=== PATIENT | female | born 1935 | race Two or more races ===

== ENCOUNTER → 2025-03-08 | Outpatient (BNVA) | payer MEDICARE, MEDICAID, SELFPAY | END | disposition home or self-care (01) | PROVIDERS: PCP Family Medicine; Referring Provider Family Medicine; Visit Provider Urology | DX: C64.2 Malignant neoplasm of left kidney, except renal pelvis (principal); N26.1 Atrophy of kidney (terminal); N28.1 Cyst of kidney, acquired; E11.9 Type 2 diabetes mellitus without complications; I10 Essential (primary) hypertension; M19.90 Unspecified osteoarthritis, unspecified site; E66.9 Obesity, unspecified; Z68.38 Body mass index [BMI] 38.0-38.9, adult | CPT/HCPCS: 81003; 99212; G0463 ==